=== PATIENT | female | born 1950 | race Caucasian/White ===

== ENCOUNTER 2017-10-13 09:48 | Inpatient (IN) | payer OTHER, BC, MEDICARE ==
[~2017-10-13] VITALS: Ht 152.4 cm; Wt 68.0 kg
[~2017-10-13 09:48] MED LIST: CIPRO500 M1 PO; FLAGYL500 MG PO; NOVOLIN 70100 UNIT/1 SQ
--- NOTE | 2017-10-13 10:16 | ED GI/GU/ABDOMINAL COMPLAINT ---
History of Present Illness General Chief Complaint: Abdominal Pain/Flank Pain Stated Complaint: R SIDE FLANK PAIN Source: patient, family, old records Exam Limitations: no limitations Vital Signs & Intake/Output Vital Signs & Intake/Output Vital Signs Date Time Temp Pulse Resp B/P B/P Pulse O2 O2 Flow FiO2 Mean Ox Delivery Rate 10/13 1730 63 20 144/70 100 10/13 1528 97.2 60 18 158/75 100 Room Air Room Air 10/13 1400 96.1 59 18 149/67 10/13 1357 96.1 59 18 149/67 100 10/13 1207 97.2 69 20 176/72 100 10/13 0958 96.7 68 18 180/81 99 Room Air Allergies Coded Allergies: nitrofurantoin (From MACROBID) (FLUSHED 10/13/17) Reconcile Medications Aspirin (Ecotrin*) 81 MG TABLET.DR 1 TAB PO EOD HEART/BLOOD (Reported) Atorvastatin Calcium 10 MG TABLET 1 TAB PO EOD CHOLESTEROL (Reported) Beta-Carotene(A) W-C & E/Se (Antioxidant Softgels) 1 EACH CAPSULE 1 CAP PO DAILY SUPPLEMENT (Reported) Calcium (Elemental-Fr Calcarb) (Tums Ultra) (Unknown Strength) TAB.CHEW ( Unknown Dose) PO PRN GI (Reported) Lactobacillus Acidophilus (Probiotic) (Unknown Strength) CAPSULE (Unknown Dose ) PO DAILY PROBIOTIC (Reported) Methylcellulose (Fiber) (Unknown Strength) TABLET (Unknown Dose) PO DAILY SUPPLEMENT (Reported) [place]-3 Fatty Acids/Fish Oil (Fish Oil 1,000 MG Softgel) (Unknown Strength) CAPSULE (Unknown Dose) PO DAILY SUPPLEMENT (Reported) Ubidecarenone (Co Q-10) (Unknown Strength) CAPSULE (Unknown Dose) PO DAILY SUPPLEMENT (Reported) Triage Note: 67 YO FEMALE TO TRIAGE C/O R SIDED FLANK PAIN SINCE YESTERDAY. STATES PAIN WENT AWAY OVER NIGHT BUT CAME BACK TODAY. STATES HX OF KIDNEY STONES AND THIS FEELS THE SAME. DENIES NVD. PT ARRIVES WITH URINE CUP, URINE NOTED TO BE DARK IN COLOR. Triage Nurses Notes Reviewed? yes ? n Is pt currently ? No Onset: Abrupt Duration: day(s):, constant, waxing and waning Timing: recent history Quality/Severity: aching, moderate, sharpness Severity Numbers: 10 Location: left flank, left lower quadrant Radiation: LLQ Activities at Onset: none No Modifying Factors: none Associated Symptoms: denies HPI: 67-year-old female history of diverticulitis, uterine cancer status post total hysterectomy, kidney stones presents complaining of right lower quadrant abdominal pain rated to the right flank since yesterday. She states the pain has been constantly there however waxing waning in intensity. She is not taken anything for her symptoms. She states she believes she may past day and the stone because her urine has appeared bloody to her. No fever no chills no constipation diarrhea (Dread Davis) Past History Travel History Traveled to [place] past 21 day No Medical History Any Pertinent Medical History? see below for history Neurological: NONE EENT: VERTIGO Cardiovascular: HIGH CHOLESTEROL Respiratory: NONE Gastrointestinal: diverticulitis Hepatic: NONE Renal: KIDNEY STONES Musculoskeletal: NONE Psychiatric: NONE Endocrine: NONE Blood Disorders: NONE Cancer(s): uterine cancer Surgical History Surgical History: hysterectomy Psychosocial History What is your primary language Romanian Tobacco Use: Never used Family History Family History, If Any: Relation not specified for: Cholelithiasis Nephrolithiasis Hx Contributory? No (Dread Davis) Review of Systems Review of Systems Constitutional: Reports: see HPI. Comments Review of systems: See HPI, All other systems negative. Constitutional, no chills no fever, HEENT: no sore throat no congestion, Cardiovascular: No chest pain , no palpitation Skin: no rashes, no change in skin Respiratory: No dyspnea no cough no sputum GI: No nausea no vomiting, no diarrhea, no bloating/constipation : No dysuria hematuria, no frequency Muscle skeletal: No joint pain, no back pain Neurologic: , no headache Heme/endocrine: No bruising Immunology: No lymphadenopathy (Dread Davis) Physical Exam Physical Exam General Appearance: well developed/nourished, alert Gastrointestinal: tenderness Comments: Well-developed well-nourished person in no acute distress HEENT: Normal EENT exam; PERRL, EOMI, HEAD is atraumatic. moist mucous membranes. Neck: Supple, normal range of motion Back: Nontender, no CVA tenderness. Full range of motion Cardiovascular: Regular rate and rhythms no murmur Respiratory: No respiratory distress. Patient speaking in full complete sentences. Breath sounds clear to auscultation bilaterally: NO W/R/R Abdomen: Soft, tender to palpation of the right lower quadrant, no appreciable organomegaly. Normal bowel sounds. No rebound/guarding, Extremity: No edema, full range of motion of extremities Neuro: Alert oriented x3, motor sensory normal, There were no obvious focal neurologic abnormalities. Skin: No appreciable rash on exposed skin, skin is warm and dry. Psych: Mood and affect is normal, memory and judgment is normal. Core Measures ACS in differential dx? No Sepsis Present: No Sepsis Focused Exam Completed? No (Jeffrey MOORE,Dread) Progress Differential Diagnosis: appendicitis, bowel obstruction, diverticulitis, gastritis, hepatitis, inflamm bowel dis, PUD/GERD, perforated viscous, SBO, UTI/ pyelo Plan of Care: Orders Procedure Date/time Status Nothing by Mouth 10/14 B Active BASIC ELECTROLYTES PLUS BUN&CR 10/14 0600 Active Regular Diet 10/13 D Complete Vital Signs 10/13 1710 Active Teach/Educate 10/13 1710 Active Pain Treatment and Response 10/13 1710 Active Nutritional Intake, Monitor 10/13 1710 Active Isolation 10/13 1710 Active Intake & Output 10/13 1710 Active Patient Care Conference 10/13 1710 Active Activity/Ambulation 10/13 1710 Active BLOOD CULTURE 10/13 1504 Active Pathway - chart 10/13 1418 Active House Staff 10/13 1418 Active Patient Data 10/13 1418 Active Code Status 10/13 1418 Active Patient Data 10/13 1416 Active OXYGEN SETUP (GEN) 10/13 1345 Active Saline Lock 10/[address] in observation 10/13 1345 Active Vital Signs 10/13 1345 Active Activity/Ambulation 10/13 1345 Active Code Status 10/13 1345 Complete Intake & Output 10/13 1027 Active CULTURE,URINE 10/13 1014 Active C-REACTIVE PROTEIN 10/13 1014 Complete COMPREHENSIVE METABOLIC PANEL 10/13 1014 Complete CBC WITHOUT DIFFERENTIAL 10/13 1014 Complete URINALYSIS 10/13 0949 Complete VTE Mechanical Prophylaxis 10/13 UNK Active Current Medications Sig/Zina Start time Last Medication Dose Stop Time Status Admin Tamsulosin HCl 0.4 MG DAILY 10/14 1000 AC (Flomax) Sodium Chloride 1,000 ML Q6H 10/13 1545 AC 10/13 (Normal Saline 0.9%) 1707 Morphine Sulfate 4 MG Q6-PRN PRN 10/13 1515 AC (MORPHINE SULFATE) Sodium Chloride 1,000 ML BOLUS ONE 10/13 1515 AC 10/13 (Normal Saline 0.9%) 10/13 1914 1601 Aspirin Buffered 81 MG Q48 10/13 1430 AC (Ecotrin) Atorvastatin Calcium 10 MG Q48 10/13 1430 AC (Lipitor) Ketorolac 15 MG Q6P PRN 10/13 1430 AC Tromethamine (Toradol) Enoxaparin Sodium 40 MG DAILY 10/13 1417 AC 10/13 (Lovenox) 1449 Laboratory Tests 10/13/17 1125: Urinalysis MOD H, Urine Color PINK H, Urine Clarity CLDY H, Urine pH 7.0, Ur Specific [place] 1.015, Urine Protein TRACE H, Urine Ketones NEG, Urine Nitrite NEG, Urine Bilirubin NEG, Urine Urobilinogen 0.2, Ur Leukocyte Esterase SMALL H , Ur Microscopic SEDIMENT EXAMINED, Urine RBC >75 H, Urine WBC 1-3 H, Ur Epithelial Cells FEW, Urine Bacteria RARE H, Urine Hemoglobin LARGE H, Urine Glucose NEG 10/13/17 1020: Anion Gap 17 H, Estimated GFR > 60, BUN/Creatinine Ratio 25.0, Glucose 146 H, Calcium 10.2, Total Bilirubin 0.8, AST 18, ALT 25, Alkaline Phosphatase 72, C- Reactive Prot, Quant < 0.5, Total Protein 7.3, Albumin 4.3, Globulin 3.0, Albumin/Globulin Ratio 1.4, CBC w Diff NO MAN DIFF REQ, RBC 4.72, MCV 90.9, MCH 30.3, MCHC 33.3, RDW 13.6, MPV 9.0, Gran % 61.8, Lymphocytes % 28.0, Monocytes % 7.4, Eosinophils % 2.2, Basophils % 0.6, Absolute Granulocytes 5.1, Absolute Lymphocytes 2.3, Absolute Monocytes 0.6, Absolute Eosinophils 0.2, Absolute Basophils 0.1 Microbiology 10/13 1632 BLOOD: Blood Culture - RECD 10/13 1620 BLOOD: Blood Culture - RECD 10/13 1504 URINE ROUT: Urine Culture - CAN Cancelled: DUPLICATE 10/13 1125 URINE ROUT: Urine Culture - RECD Labs ordered old records reviewed CAT scan ordered patient medicated with Toradol morphine IV pain is coming in waves discussed with her plan of care she is declining anything else for pain at this time pending CAT scan IV Tylenol ordered pain is not controlled at this time I discussed with her her CAT scan results I spoke with Dr. Edwards covering for Dr. Riley, case discussed with Dr. carlo pinedo in obs Discussed with patient and her plan of care they feel comfortable with plan IV Tylenol as running no Place her in observation for intractable pain Diagnostic Imaging: Viewed by Me: CT Scan. Discussed w/RAD: CT Scan. Radiology Impression: PATIENT: LUKE ESPINOZA PRESENT AGE: 67 PATIENT ACCOUNT NO: [id number] : 49 LOCATION: [facility] ORDERING PHYSICIAN: Dread MOORE SERVICE DATE: 10/13/17 EXAM TYPE: CAT - CT ABD & PELVIS W IV CONTRAST EXAMINATION: CT ABDOMEN AND PELVIS WITH CONTRAST CLINICAL INFORMATION: Right lower quadrant pain. Evaluate for kidney stone versus appendicitis. COMPARISON: Previous x-rays most recent May [address] October 2015. TECHNIQUE: Multidetector volumetric imaging was performed of the abdomen and pelvis following IV administration of 95 mL of Optiray 320 intravenous contrast. Sagittal and coronal reformatted images were obtained on the technologist's workstation. DLP: 289 mGy-cm FINDINGS: LUNG BASES: The visualized lung bases are unremarkable. LIVER, GALLBLADDER, AND BILIARY TREE: There is a small 3 mm low-attenuation lesion in the posterior segment of the right lobe of the liver axial image 28 series 2. This is too small to definitively characterize but may represent a small cyst. The gallbladder is unremarkable with no evidence of radiopaque gallstones, gallbladder wall thickening, or obvious pericholecystic inflammatory changes. PANCREAS: Unremarkable. SPLEEN: Unremarkable. ADRENAL GLANDS: Unremarkable. KIDNEYS AND URETERS: There is moderate right hydronephrosis from a 3 mm right proximal ureteral stone. There is fat stranding seen surrounding the right kidney and right proximal ureter questionable for urine extravasation. Differential would include infection. No other stone is seen. The left kidney and ureter are unremarkable. BLADDER: Unremarkable. GASTROINTESTINAL TRACT: There is evidence of diverticulosis. Small and large bowel is otherwise unremarkable. The appendix is unremarkable. There is a small gastric diverticulum arising from the posterior fundus of the stomach. ABDOMINAL WALL: No significant hernia is appreciated. LYMPH NODES: There are no enlarged lymph nodes. There are surgical clips in the bilateral pelvis suggestive of previous lymph node dissection. There is no ascites. VASCULAR: There is evidence of atherosclerotic disease. No aneurysm is seen. PELVIC VISCERA: The uterus appears to have been removed. No pelvic mass is seen. OSSEOUS STRUCTURES: There are degenerative changes of the spine and mild scoliosis of the lower lumbar spine to the right. IMPRESSION: Moderate right hydronephrosis from a 3 mm right proximal ureteral stone. There is a small amount of fluid and fat stranding seen surrounding the right kidney and right proximal ureter questionable for possible urinary extravasation or infection. No other stone seen. Diverticulosis. DICTATED BY: Maranda Apple MD DATE/TIME DICTATED:10/13/171210 [employer] ASSOCIATE:LUIS ALFREDO DATE/TIME TRANSCRIBED:10/13/171210 CONFIDENTIAL, DO NOT COPY WITHOUT APPROPRIATE AUTHORIZATION. <Electronically signed in Other Vendor System> SIGNED BY: Maranda Apple MD 10/13/17 1245 Initial ED EKG: none (Dread Davis) Departure Departure Time of Disposition: 1341 Disposition: STILL A PATIENT Condition: Stable Clinical Impression Primary Impression: Intractable pain Secondary Impressions: Hydronephrosis, Kidney stone Referrals: Conrado SPARROW,Christina Lacey APRN (PCP/Family) Departure Forms: Customer Survey General Discharge Information Observation Note Spoke With: Carlo SPARROW,[facility] Patient In: Non-ED OBS Care Area Rationale for Observation: My rational for observation is as follows urology consult, IV pain medication premature discharge to be medically harmful as she has required multiple doses of medication without improvement in her symptoms she would fail outpatient therapy (Dread Davis) PA/DEPARTMENT MGR Co-Sign Statement Statement: ED Attending supervision documentation- x I saw and evaluated the patient. I have also reviewed all the pertinent lab results and diagnostic results. I agree with the findings and the plan of care as documented in the PA's/DEPARTMENT MGR's documentation. Intractable pain secondary to renal colic. [] I have reviewed the ED Record and agree with the PA's/DEPARTMENT MGR's documentation. [] Additions or exceptions (if any) to the PAs/DEPARTMENT MGR's note and plan are summarized below: [] (Ariela SPARROW,Bertram)
[2017-10-13 10:42] LABS: ABSOLUTE BASOPHIL COUNT 0.1 /CUMM (0.0-0.2); ABSOLUTE EOSINOPHIL COUNT 0.2 /CUMM (0.0-0.7); ABSOLUTE GRANULOCYTE CT 5.1 /CUMM (1.4-6.5); ABSOLUTE LYMPH COUNT 2.3 /CUMM (1.2-3.4); ABSOLUTE MONOCYTE COUNT 0.6 /CUMM (0.10-0.60); BASOPHIL % 0.6 % (0.0-2.0); EOSINOPHIL % 2.2 % (0-5); GRANULOCYTE % 61.8 % (42.2-75.2); HEMATOCRIT 42.9 % (37-47); MEAN CORPUSCULAR HGB 30.3 PG (27.0-31.0); MEAN CORPUSCULAR HGB CONC 33.3 G/DL (33.0-37.0); MEAN CORPUSCULAR VOLUME 90.9 FL (81.0-99.0); PLATELET COUNT 296 /CUMM (130-400); RBC DISTRIBUTION WIDTH 13.6 % (11.5-14.5); RED BLOOD CELL CT 4.72 /CUMM (4.20-5.40); WHITE BLOOD CELL COUNT 8.3 /CUMM (4.8-10.8)
--- NOTE | 2017-10-13 12:45 | CT SCAN REPORT ---
EXAMINATION: CT ABDOMEN AND PELVIS WITH CONTRAST CLINICAL INFORMATION: Right lower quadrant pain. Evaluate for kidney stone versus appendicitis. COMPARISON: Previous x-rays most recent May [address] October 2015. TECHNIQUE: Multidetector volumetric imaging was performed of the abdomen and pelvis following IV administration of 95 mL of Optiray 320 intravenous contrast. Sagittal and coronal reformatted images were obtained on the technologist's workstation. DLP: 289 mGy-cm FINDINGS: LUNG BASES: The visualized lung bases are unremarkable. LIVER, GALLBLADDER, AND BILIARY TREE: There is a small 3 mm low-attenuation lesion in the posterior segment of the right lobe of the liver axial image 28 series 2. This is too small to definitively characterize but may represent a small cyst. The gallbladder is unremarkable with no evidence of radiopaque gallstones, gallbladder wall thickening, or obvious pericholecystic inflammatory changes. PANCREAS: Unremarkable. SPLEEN: Unremarkable. ADRENAL GLANDS: Unremarkable. KIDNEYS AND URETERS: There is moderate right hydronephrosis from a 3 mm right proximal ureteral stone. There is fat stranding seen surrounding the right kidney and right proximal ureter questionable for urine extravasation. Differential would include infection. No other stone is seen. The left kidney and ureter are unremarkable. BLADDER: Unremarkable. GASTROINTESTINAL TRACT: There is evidence of diverticulosis. Small and large bowel is otherwise unremarkable. The appendix is unremarkable. There is a small gastric diverticulum arising from the posterior fundus of the stomach. ABDOMINAL WALL: No significant hernia is appreciated. LYMPH NODES: There are no enlarged lymph nodes. There are surgical clips in the bilateral pelvis suggestive of previous lymph node dissection. There is no ascites. VASCULAR: There is evidence of atherosclerotic disease. No aneurysm is seen. PELVIC VISCERA: The uterus appears to have been removed. No pelvic mass is seen. OSSEOUS STRUCTURES: There are degenerative changes of the spine and mild scoliosis of the lower lumbar spine to the right. IMPRESSION: Moderate right hydronephrosis from a 3 mm right proximal ureteral stone. There is a small amount of fluid and fat stranding seen surrounding the right kidney and right proximal ureter questionable for possible urinary extravasation or infection. No other stone seen. Diverticulosis.
[2017-10-13] MEDS ORDERED: ATORVASTATIN CA10 M1 PO (12:53)
[2017-10-13] MEDS ORDERED: ASPIRIN EC81 M1 PO (12:53)
[2017-10-13] MEDS ORDERED: CO Q-10150 MG PO (12:53)
[2017-10-13] MEDS ORDERED: ANTIOXIDANT SO1 EACH PO (12:54)
[2017-10-13] MEDS ORDERED: PROBIOTIC1 EACH PO (12:54)
[2017-10-13] MEDS ORDERED: FISH OIL 1,0001 EAC1 PO (12:54)
[2017-10-13] MEDS ORDERED: TUMS ULTRA400 M1 PO (12:55)
[2017-10-13] MEDS ORDERED: FIBER500 MG PO (12:55)
--- NOTE | 2017-10-13 14:50 | History & Physical ---
Maria Fernanda Heller 10/13/17 1436: General Information and HPI MD Statement: I have seen and personally examined LUKE ESPINOZA and documented this H&P. The patient is a 67 year old F who presented with a patient stated chief complaint of abdominal pain]. Source of Information: patient Exam Limitations: no limitations History of Present Illness: She is a 67-year-old female with past medical history of diverticulitis, uterine cancer status post hysterectomy, kidney stones presented to the ER with a chief complaint of abdominal pain and hematuria that started yesterday. Patient reports that around yesterday afternoon she started having right-sided coliky abdominal pain radiating to her groin. She continued to have intermittent pain and 1 episode of hematuria. Denies any fever but admits to having chills. Denies any chest pain, palpitations, nausea, vomiting, bowel symptoms. The pain subsided by itself and patient decided not to come to the hospital. But today again she started having similar pain and therefore decided to come to the hospital. Dr. Camp is her urologist. In the ED vitals temperature 96.7, pulse 68, respiration 18, blood pressure 180 /71, saturating 99% on room air. With small leukocyte esterase, large hemoglobin. Labs were all within normal limits Urine was cloudy, pink Abdominal/pelvis CT :Moderate right hydronephrosis from a 3 mm right proximal ureteral stone. There is a small amount of fluid and fat stranding seen surrounding the right kidney and right proximal ureter questionable for possible urinary extravasation or infection. No other stone seen. Diverticulosis. She received IV Toradol, IV morphine, and IV Tylenol in the ED Allergies/Medications Allergies: Coded Allergies: nitrofurantoin (From MACROBID) (FLUSHED 10/13/17) Home Med list Aspirin (Ecotrin*) 81 MG TABLET.DR 1 TAB PO EOD HEART/BLOOD (Reported) Atorvastatin Calcium 10 MG TABLET 1 TAB PO EOD CHOLESTEROL (Reported) Beta-Carotene(A) W-C & E/Se (Antioxidant Softgels) 1 EACH CAPSULE 1 CAP PO DAILY SUPPLEMENT (Reported) Calcium (Elemental-Fr Calcarb) (Tums Ultra) (Unknown Strength) TAB.CHEW ( Unknown Dose) PO PRN GI (Reported) Lactobacillus Acidophilus (Probiotic) (Unknown Strength) CAPSULE (Unknown Dose ) PO DAILY PROBIOTIC (Reported) Methylcellulose (Fiber) (Unknown Strength) TABLET (Unknown Dose) PO DAILY SUPPLEMENT (Reported) [place]-3 Fatty Acids/Fish Oil (Fish Oil 1,000 MG Softgel) (Unknown Strength) CAPSULE (Unknown Dose) PO DAILY SUPPLEMENT (Reported) Ubidecarenone (Co Q-10) (Unknown Strength) CAPSULE (Unknown Dose) PO DAILY SUPPLEMENT (Reported) Past History Travel History Traveled to [place] past 21 day No Medical History Neurological: NONE EENT: VERTIGO Cardiovascular: HIGH CHOLESTEROL Respiratory: NONE Gastrointestinal: diverticulitis Hepatic: NONE Renal: KIDNEY STONES Musculoskeletal: NONE Psychiatric: NONE Endocrine: NONE Blood Disorders: NONE Cancer(s): uterine cancer Surgical History Surgical History: hysterectomy Past Family/Social History Family History Relations & Conditions if any Relation not specified for: Cholelithiasis Nephrolithiasis Review of Systems Review of Systems Constitutional: Reports: chills. EENTM: Reports: no symptoms. Cardiovascular: Reports: no symptoms. Respiratory: Reports: no symptoms. GI: Reports: abdominal pain. Genitourinary: Reports: hematuria. Musculoskeletal: Reports: no symptoms. Skin: Reports: no symptoms. Exam & Diagnostic Data Last 24 Hrs of Vital Signs/I&O Vital Signs Date Time Temp Pulse Resp B/P B/P Pulse O2 O2 Flow FiO2 Mean Ox Delivery Rate 10/13 1400 96.1 59 18 149/67 10/13 1357 96.1 59 18 149/67 100 10/13 1207 97.2 69 20 176/72 100 10/13 0958 96.7 68 18 180/81 99 Room Air Intake & Output 10/13 1600 10/13 0800 10/13 0000 Intake Total 1000 Output Total Balance 1000 Intake, IV 1000 Patient 67.132 kg Weight Weight Reported by Patient Measurement Method Physical Exam General Appearance Alert, Oriented X3, Cooperative, No Acute Distress Skin No Rashes, No Breakdown, No Significant Lesion Skin Temp/Moisture Exam: Warm/Dry Sepsis Skin Exam (color): Normal for Ethnicity HEENT Atraumatic, PERRLA, EOMI Neck Supple Lymphatic Cervical nl Cardiovascular Regular Rate, Normal S1, Normal S2 Lungs Clear to Auscultation, Normal Air Movement Abdomen right lumbar tenderness with rebound tenderness. No CVA tenderness Neurological Normal Speech, Sensation Intact Extremities No Clubbing, No Cyanosis, No Edema Last 24 Hrs of Labs/Toño: Laboratory Tests 10/13/17 1125: Urinalysis MOD H, Urine Color PINK H, Urine Clarity CLDY H, Urine pH 7.0, Ur Specific [place] 1.015, Urine Protein TRACE H, Urine Ketones NEG, Urine Nitrite NEG, Urine Bilirubin NEG, Urine Urobilinogen 0.2, Ur Leukocyte Esterase SMALL H , Ur Microscopic SEDIMENT EXAMINED, Urine RBC >75 H, Urine WBC 1-3 H, Ur Epithelial Cells FEW, Urine Bacteria RARE H, Urine Hemoglobin LARGE H, Urine Glucose NEG 10/13/ 1020: Anion Gap 17 H, Estimated GFR > 60, BUN/Creatinine Ratio 25.0, Glucose 146 H, Calcium 10.2, Total Bilirubin 0.8, AST 18, ALT 25, Alkaline Phosphatase 72, C- Reactive Prot, Quant < 0.5, Total Protein 7.3, Albumin 4.3, Globulin 3.0, Albumin/Globulin Ratio 1.4, CBC w Diff NO MAN DIFF REQ, RBC 4.72, MCV 90.9, MCH 30.3, MCHC 33.3, RDW 13.6, MPV 9.0, Gran % 61.8, Lymphocytes % 28.0, Monocytes % 7.4, Eosinophils % 2.2, Basophils % 0.6, Absolute Granulocytes 5.1, Absolute Lymphocytes 2.3, Absolute Monocytes 0.6, Absolute Eosinophils 0.2, Absolute Basophils 0.1 Microbiology 10/13 1124 URINE ROUT: Urine Culture - RECD Assessment/Plan Assessment: She is a 67-year-old female with past medical history of diverticulitis, uterine cancer status post hysterectomy, kidney stones presented to the ER with a chief complaint of abdominal pain and hematuria that started yesterday. In the ED vitals temperature 96.7, pulse 68, respiration 18, blood pressure 180/ 71, saturating 99% on room air. With small leukocyte esterase, large hemoglobin. Labs were all within normal limits Urine was cloudy, pink Abdominal/pelvis CT :Moderate right hydronephrosis from a 3 mm right proximal ureteral stone. There is a small amount of fluid and fat stranding seen surrounding the right kidney and right proximal ureter questionable for possible urinary extravasation or infection. No other stone seen. Diverticulosis. She received IV Toradol, IV morphine, and IV Tylenol in the ED Assessment * Renal colic secondary to proximal ureteral stone * Mild right hydronephrosis * Uterine cancer status post hysterectomy Plan * Admit to [facility] * Vitals per protocol * IV hydration with normal saline at 150 cc an hour * Continue flomax daily * urine and blood cultures * Continue IV morphine and Toradol for pain control * We will watch off antibiotics since no signs of infection. Culture negative in the past * Urology consult with Dr. Camp tomorrow * We will keep patient nothing by mouth if plan to do ESWL tomorrow * DVT prophylaxis subcutaneous heparin * Full code * Severe pain pathway As Ranked By This Provider Problem List: 1. Hydronephrosis 2. Kidney stone Core Measures/Misc (04/07) Acute Coronary Syndrome ACS Diagnosis: No Congestive Heart Failure Congestive Heart Failure Diagnosis No Cerebrovascular Accident CVA/TIA Diagnosis: No VTE (View Protocol) VTE Risk Factors Age>40 No Mechanical VTE Prophylaxis d/t N/A MechProphylax Ordered No VTE Pharm Prophylaxis d/t NA PharmProphylax ordered Sepsis (View protocol) Sepsis Present: No Carlo SPARROW,[facility] 10/13/17 1649: Attending MD Review Statement Attending Statement Attending MD Statement: examined this patient, discuss w/resident/PA/PIPE FITTER WELDING, agreed w/resident/PA/PIPE FITTER WELDING, discussed with family, reviewed EMR data (avail), reviewed images Attending Assessment/Plan: 67-year-old female with past medical history of diverticulitis, uterine cancer status post hysterectomy, kidney stones presented to the ER with a chief complaint of abdominal pain and hematuria that started yesterday without any fever chills or nausea or vomiting. Patient follows up with Dr. Camp. Last episode of renal colic was about 3 years ago. Her sister also suffers from renal stones. At the time of admission she is afebrile. Her initial blood pressure was 180/81 however later blood pressure was 158/75. Urine shows hematuria and WBC count is normal. Chemistry labs show mild gap acidosis and elevated BUN of 20. CT of the abdomen shows 3 mm right proximal ureteric stone with hydronephrosis. Plan is to place in observation medical floor for pain control and IV hydration. Will begin IV fluids. Patient was given IV Toradol. Consultation Dr. Camp will be done in the morning. Given the size of stone, she will be managed medically.
--- NOTE | 2017-10-13 16:57 | Cons- Urology ---
General Information and HPI Consulting Request Date of Consult: 10/13/17 Requested By: Carlo SPARROW,[place] Reason for Consult: SEVERE RIGHT RENAL COLIC WITH 3MM STONE: HYRO Source of Information: patient, family, old records Exam Limitations: no limitations History of Present Illness: 67 YR OLD WITH SUDDEN ONSET SEVERE RIGHT COLIC: REQUIRED IV NARCS FOR PAIN CONTROL. CT REVEALS 3MM RIGHT MID-URETER STONE WITH HYDRO. PLAN IS ADMIT FOR PAIN MANAGEMENT AND NPO POST-MIDNIGHT FOR POSSIBLE STENT/URETEROSCOPY/ESWL IN AM Allergies/Medications Allergies: Coded Allergies: nitrofurantoin (From MACROBID) (FLUSHED 10/13/17) Home Med List: Aspirin (Ecotrin*) 81 MG TABLET.DR 1 TAB PO EOD HEART/BLOOD (Reported) Atorvastatin Calcium 10 MG TABLET 1 TAB PO EOD CHOLESTEROL (Reported) Beta-Carotene(A) W-C & E/Se (Antioxidant Softgels) 1 EACH CAPSULE 1 CAP PO DAILY SUPPLEMENT (Reported) Calcium (Elemental-Fr Calcarb) (Tums Ultra) (Unknown Strength) TAB.CHEW ( Unknown Dose) PO PRN GI (Reported) Lactobacillus Acidophilus (Probiotic) (Unknown Strength) CAPSULE (Unknown Dose ) PO DAILY PROBIOTIC (Reported) Methylcellulose (Fiber) (Unknown Strength) TABLET (Unknown Dose) PO DAILY SUPPLEMENT (Reported) [place]-3 Fatty Acids/Fish Oil (Fish Oil 1,000 MG Softgel) (Unknown Strength) CAPSULE (Unknown Dose) PO DAILY SUPPLEMENT (Reported) Ubidecarenone (Co Q-10) (Unknown Strength) CAPSULE (Unknown Dose) PO DAILY SUPPLEMENT (Reported) Current Medications: Current Medications Sig/Zina Start time Last Medication Dose Route Stop Time Status Admin Acetaminophen 0 .STK-MED ONE 10/13 1220 DC IV Acetaminophen 1,000 MG ONCE ONE 10/13 1215 DC 10/13 N/A 1 UNIT IV 10/13 1229 1224 Aspirin Buffered 81 MG Q48 10/13 1430 AC PO Atorvastatin Calcium 10 MG Q48 10/13 1430 AC PO Enoxaparin Sodium 0 .STK-MED ONE 10/13 1451 DC SC Enoxaparin Sodium 40 MG DAILY 10/13 1417 AC 10/13 SC 1449 Ketorolac 15 MG Q6P PRN 10/13 1430 AC Tromethamine IV Ketorolac 0 .STK-MED ONE 10/13 1022 DC Tromethamine .ROUTE Ketorolac 30 MG ONCE ONE 10/13 1015 DC 10/13 Tromethamine IV 10/13 1016 1020 Morphine Sulfate 4 MG Q6-PRN PRN 10/13 1515 AC IV Morphine Sulfate 0 .STK-MED ONE 10/13 1035 DC .ROUTE Morphine Sulfate 6 MG ONCE ONE 10/13 1030 DC 10/13 IV 10/13 1031 1035 Sodium Chloride 1,000 ML Q6H 10/13 1545 AC IV Sodium Chloride 1,000 ML BOLUS ONE 10/13 1515 AC 10/13 IV 10/13 1914 1601 Sodium Chloride 1,000 ML BOLUS ONE 10/13 1015 DC 10/13 IV 10/13 1114 1020 Tamsulosin HCl 0.4 MG DAILY 10/14 1000 AC PO Tamsulosin HCl 0.4 MG DAILY 10/13 1533 DC PO Tamsulosin HCl 0.4 MG ONCE ONE 10/13 1345 DC 10/13 PO 10/13 1346 1400 Past History Medical History Neurological: NONE EENT: VERTIGO Cardiovascular: HIGH CHOLESTEROL Respiratory: NONE Gastrointestinal: diverticulitis Hepatic: NONE Renal: KIDNEY STONES Musculoskeletal: NONE Psychiatric: NONE Endocrine: NONE Blood Disorders: NONE Cancer(s): uterine cancer Surgical History Pertinent Surgical History: hysterectomy Family History Relations & Conditions If Any: Relation not specified for: Cholelithiasis Nephrolithiasis Psychosocial History Where Do You Live? Home Who Do You Live With? spouse Services at Home: None ETOH Use: denies use Illicit Drug Use: denies illicit drug use Functional Ability ADLs Independent: dressing, eating, toileting, bathing. Ambulation: independent IADLs Independent: shopping, housework, finances, food prep, telephone, transportation , medication admin. Employment History Retired? unknown Review of Systems Review of Systems Constitutional: Reports: see HPI, chills. EENTM: Denies: no symptoms. Cardiovascular: Denies: no symptoms. Respiratory: Denies: no symptoms. GI: Reports: abdominal pain, bloating. Genitourinary: Denies: no symptoms. Musculoskeletal: Denies: no symptoms. Skin: Denies: no symptoms. Neurological/Psychological: Denies: no symptoms. Exam & Diagnostic Data Vital Signs and I&O Vital Signs Date Time Temp Pulse Resp B/P B/P Pulse O2 O2 Flow FiO2 Mean Ox Delivery Rate 03/25 1528 97.2 60 18 158/75 100 Room Air Room Air 10/13 1400 96.1 59 18 149/67 10/13 1357 96.1 59 18 149/67 100 10/13 1207 97.2 69 20 176/72 100 10/13 0958 96.7 68 18 180/81 99 Room Air Intake & Output 10/13 1600 10/13 0800 10/13 0000 10/12 1600 10/12 0800 10/12 0000 Intake Total 1000 Output Total Balance 1000 Intake, IV 1000 Patient 148 lb Weight Weight Reported by Patient Measurement Method Physical Exam General Appearance: well developed/nourished, mild distress Head: atraumatic Eyes: Bilateral: normal appearance. Ears, Nose, Throat: normal pharynx Respiratory: normal breath sounds Cardiovascular: regular rate/rhythm Gastrointestinal: normal bowel sounds, soft, non-tender Back: CVA tenderness (R) Extremities: normal inspection Neurologic/Psych: no motor/sensory deficits, awake, alert, oriented x 3 Skin: intact Last 24 Hours of Labs: Laboratory Tests 10/13 10/13 1125 1020 Chemistry Sodium (137 - 145 mmol/L) 139 Potassium (3.5 - 5.1 mmol/L) 4.0 Chloride (98 - 107 mmol/L) 101 Carbon Dioxide (22 - 30 mmol/L) 21 L Anion Gap (5 - 16) 17 H BUN (7 - 17 mg/dL) 20 H Creatinine (0.5 - 1.0 mg/dL) 0.8 Estimated GFR (>60 ml/min) > 60 BUN/Creatinine Ratio (7 - 25 %) 25.0 Glucose (65 - 99 mg/dL) 146 H Calcium (8.4 - 10.2 mg/dL) 10.2 Total Bilirubin (0.2 - 1.3 mg/dL) 0.8 AST (14 - 36 U/L) 18 ALT (9 - 52 U/L) 25 Alkaline Phosphatase (<127 U/L) 72 C-Reactive Prot, Quant (<1.0 mg/dL) < 0.5 Total Protein (6.3 - 8.2 g/dL) 7.3 Albumin (3.5 - 5.0 g/dL) 4.3 Globulin (1.9 - 4.2 gm/dL) 3.0 Albumin/Globulin Ratio (1.1 - 2.2 %) 1.4 Hematology CBC w Diff NO MAN DIFF REQ WBC (4.8 - 10.8 /CUMM) 8.3 RBC (4.20 - 5.40 /CUMM) 4.72 Hgb (12.0 - 16.0 G/DL) 14.3 Hct (37 - 47 %) 42.9 MCV (81.0 - 99.0 FL) 90.9 MCH (27.0 - 31.0 PG) 30.3 MCHC (33.0 - 37.0 G/DL) 33.3 RDW (11.5 - 14.5 %) 13.6 Plt Count (130 - 400 /CUMM) 296 MPV (7.4 - 10.4 FL) 9.0 Gran % (42.2 - 75.2 %) 61.8 Lymphocytes % (20.5 - 51.1 %) 28.0 Monocytes % (1.7 - 9.3 %) 7.4 Eosinophils % (0 - 5 %) 2.2 Basophils % (0.0 - 2.0 %) 0.6 Absolute Granulocytes (1.4 - 6.5 /CUMM) 5.1 Absolute Lymphocytes (1.2 - 3.4 /CUMM) 2.3 Absolute Monocytes (0.10 - 0.60 /CUMM) 0.6 Absolute Eosinophils (0.0 - 0.7 /CUMM) 0.2 Absolute Basophils (0.0 - 0.2 /CUMM) 0.1 Urines Urinalysis MOD H Urine Color (YEL,AMB,STR) PINK H Urine Clarity (CLEAR) CLDY H Urine pH (5.0 - 8.0) 7.0 Ur Specific [place] (1.001 - 1.035) 1.015 Urine Protein (NEG,<30 MG/DL) TRACE H Urine Ketones (NEG) NEG Urine Nitrite (NEG) NEG Urine Bilirubin (NEG) NEG Urine Urobilinogen (0.1 - 1.0 EU/dl) 0.2 Ur Leukocyte Esterase (NEG) SMALL H Ur Microscopic SEDIMENT EXAMINED Urine RBC (0 - 5 /HPF) >75 H Urine WBC (0 - 2 /HPF) 1-3 H Ur Epithelial Cells (NONE,FEW) FEW Urine Bacteria (NEG/NONE) RARE H Urine Hemoglobin (NEG) LARGE H Urine Glucose (N MG/DL) NEG Imaging Results: PATIENT: CISTO,LUKE PRESENT AGE: 67 PATIENT ACCOUNT NO: [id number] : 49 LOCATION: [facility] ORDERING PHYSICIAN: Dread MOORE SERVICE DATE: 10/13/17 EXAM TYPE: CAT - CT ABD & PELVIS W IV CONTRAST EXAMINATION: CT ABDOMEN AND PELVIS WITH CONTRAST CLINICAL INFORMATION: Right lower quadrant pain. Evaluate for kidney stone versus appendicitis. COMPARISON: Previous x-rays most recent May [address] October 2015. TECHNIQUE: Multidetector volumetric imaging was performed of the abdomen and pelvis following IV administration of 95 mL of Optiray 320 intravenous contrast. Sagittal and coronal reformatted images were obtained on the technologist's workstation. DLP: 289 mGy-cm FINDINGS: LUNG BASES: The visualized lung bases are unremarkable. LIVER, GALLBLADDER, AND BILIARY TREE: There is a small 3 mm low-attenuation lesion in the posterior segment of the right lobe of the liver axial image 28 series 2. This is too small to definitively characterize but may represent a small cyst. The gallbladder is unremarkable with no evidence of radiopaque gallstones, gallbladder wall thickening, or obvious pericholecystic inflammatory changes. PANCREAS: Unremarkable. SPLEEN: Unremarkable. ADRENAL GLANDS: Unremarkable. KIDNEYS AND URETERS: There is moderate right hydronephrosis from a 3 mm right proximal ureteral stone. There is fat stranding seen surrounding the right kidney and right proximal ureter questionable for urine extravasation. Differential would include infection. No other stone is seen. The left kidney and ureter are unremarkable. BLADDER: Unremarkable. GASTROINTESTINAL TRACT: There is evidence of diverticulosis. Small and large bowel is otherwise unremarkable. The appendix is unremarkable. There is a small gastric diverticulum arising from the posterior fundus of the stomach. ABDOMINAL WALL: No significant hernia is appreciated. LYMPH NODES: There are no enlarged lymph nodes. There are surgical clips in the bilateral pelvis suggestive of previous lymph node dissection. There is no ascites. VASCULAR: There is evidence of atherosclerotic disease. No aneurysm is seen. PELVIC VISCERA: The uterus appears to have been removed. No pelvic mass is seen. OSSEOUS STRUCTURES: There are degenerative changes of the spine and mild scoliosis of the lower lumbar spine to the right. IMPRESSION: Moderate right hydronephrosis from a 3 mm right proximal ureteral stone. There is a small amount of fluid and fat stranding seen surrounding the right kidney and right proximal ureter questionable for possible urinary extravasation or infection. No other stone seen. Diverticulosis. Assessment/Plan Assessment/Plan RIGTH 3MM URETER STONE WITH HYDRO/COLIC Copies To: Rony Edwards MD Consult Acknowledgment - Thank you for your consult request. Attending MD Review Statement Attending Statement Attending MD Statement: examined this patient, discuss w/resident/PA/LOADER Attending Assessment/Plan: PT ADMITTED FOR PAIN MANAGMENT AND HYDRATION: NPO POST MIDNIGHT FOR POSSIBLE STENT/URETEROSCOPY/ESWL IN AM IF NO IMPROVEMENT.
[2017-10-13 17:30] VITALS: BP 144/70
[2017-10-13 20:00] VITALS: BP 140/78
[2017-10-13 22:04] VITALS: BP 142/70
[2017-10-13 22:05] VITALS: BP 130/68
[2017-10-14 06:20] VITALS: BP 142/66
--- NOTE | 2017-10-14 08:36 | PN- Housestaff ---
See Addendum Subjective Follow-up For: Right lower quadrant abdominal and right lung pain and tenderness Subjective: Afebrile, hemodynamically stable, saturating well on room air. The patient still complaining of right lower quadrant pain and right flank pain. She is also complaining of symptoms of indigestion, acid reflux and mild epigastric. GERD is being going for few months for which she was Tums at home. Review of Systems Constitutional: Reports: see HPI. Objective Last 24 Hrs of Vital Signs/I&O Vital Signs Date Time Temp Pulse Resp B/P B/P Pulse O2 O2 Flow FiO2 Mean Ox Delivery Rate 10/14 1000 60 110/60 10/14 0620 97.7 69 20 142/66 99 Room Air 10/13 2205 97.5 63 20 130/68 99 10/13 2000 140/78 10/13 1920 97.7 10/13 1730 63 20 144/70 100 10/13 1528 97.2 60 18 158/75 100 Room Air Room Air 10/13 1400 96.1 59 18 149/67 10/13 1357 96.1 59 18 149/67 100 10/13 1207 97.2 69 20 176/72 100 Intake & Output 10/14 1600 10/14 0800 10/14 0000 Intake Total 1200 1550 Output Total 2500 850 Balance -1300 700 Intake, IV 1200 750 Intake, Oral 800 Number 0 Bowel Movements Output, Urine 2500 850 Patient 68.039 kg Weight Physical Exam General Appearance: Alert, Oriented X3, Cooperative, Mild Distress Skin: No Rashes HEENT: Atraumatic, PERRLA, EOMI, Mucous Membr. moist/pink Neck: No JVD Cardiovascular: Regular Rate, Normal S1, Normal S2, No Murmurs Lungs: Clear to Auscultation, Normal Air Movement Abdomen: Soft, RLQ tenderness Neurological: Normal Speech, Strength at 5/5 X4 Ext Extremities: No Clubbing, No Cyanosis, No Edema Other Physical Findings: Right flank tenderness even with mild pressure Assessment/Plan Assessment: This is a 67-year-old female with a past medical history of diverticulitis, uterine cancer S/P hysterectomy and kidney stone who presented complaining of right lower quadrant abdominal pain and hematuria that started 1 day prior to admission. Urine did not show sign of infection. She is afebrile, normal WBCs, and no fever. CT abdomen and pelvis showed moderate right hydronephrosis secondary to 3 mm right proximal ureteral stone with some fluid and fat stranding surrounding the right kidney. On admission she had elevated blood pressure that most likely secondary to pain, blood pressure is been controlled since then without antihypertensive medication. Assessment #Renal colic most likely caused by 3 mm proximal ureteral stone The patient has no symptom or signs suggestive of ongoing infection, however CT showed mild hydronephrosis. Urology yesterday recommended stent placement if the symptoms did not improve. She is currently nothing by mouth for stent placement. * We will continue IV hydration @75ml/h while NPO * Continue Flomax daily * Pending urine and blood culture will continue watch of antibiotic * Pain control with morphine and Toradol as needed * Going for stent placement with Dr. Camp. #GERD and indigestion Patient has been complaining of these symptoms for long time, she self manage with Tums at home. * We will start PPI * We will instruct patient to follow with primary care doctor as an outpatient -We will continue the rest of home medication includes ASA and statin -NPO for now. -DVT prophylaxis subcutaneous heparin. -Full code. Problem List: 1. Kidney stone Pain Ratin Pain Location: right LQ and right flank Pain Goal: Remain pain free Pain Plan: See A&P Tomorrow's Labs & Rationales: BEP to follow Na and Cr Pain Ratin Pain Location: right LQ and right flank Pain Goal: Remain pain free Pain Plan: See A&P Tomorrow's Labs & Rationales: BEP to follow Na and Cr
--- NOTE | 2017-10-14 13:39 | Cons- Urology ---
General Information and HPI Consulting Request Date of Consult: 10/14/17 Requested By: Sejal Bull MD Reason for Consult: 3 mm R proximal ureteral stone Source of Information: patient, old records Exam Limitations: no limitations History of Present Illness: This patient has a hx of urinary stones and has been followed in the office for an asymptomatic R caliceal renal stone. She presented to the ER with 2 day hx of R flank pain and RLQ pain and recent pink urine. She denies any fever or vomiting. CT showed a 3 mm R proximal uretera stone with mild to moderate R hydronephrosis. The CT was done with IV contrast and the nephrograms were prompt bilaterally. Since being admitted her pain has been well controlled. Her biggest complaint has been heart burn which is being managed with medication effectively. She has been afebrile since admission and has a normal WBC count and normal creatinine. Her U/A shows no sign of infection. Allergies/Medications Allergies: Coded Allergies: nitrofurantoin (From [employer]) (FLUSHED 10/13/17) Home Med List: Aspirin (Ecotrin*) 81 MG TABLET.DR 1 TAB PO EOD HEART/BLOOD (Reported) Atorvastatin Calcium 10 MG TABLET 1 TAB PO EOD CHOLESTEROL (Reported) Beta-Carotene(A) W-C & E/Se (Antioxidant Softgels) 1 EACH CAPSULE 1 CAP PO DAILY SUPPLEMENT (Reported) Calcium (Elemental-Fr Calcarb) (Tums Ultra) (Unknown Strength) TAB.CHEW ( Unknown Dose) PO PRN GI (Reported) Lactobacillus Acidophilus (Probiotic) (Unknown Strength) CAPSULE (Unknown Dose ) PO DAILY PROBIOTIC (Reported) Methylcellulose (Fiber) (Unknown Strength) TABLET (Unknown Dose) PO DAILY SUPPLEMENT (Reported) [place]-3 Fatty Acids/Fish Oil (Fish Oil 1,000 MG Softgel) (Unknown Strength) CAPSULE (Unknown Dose) PO DAILY SUPPLEMENT (Reported) Ubidecarenone (Co Q-10) (Unknown Strength) CAPSULE (Unknown Dose) PO DAILY SUPPLEMENT (Reported) Current Medications: Current Medications Sig/Zina Start time Last Medication Dose Route Stop Time Status Admin Acetaminophen 1,000 MG ONCE ONE 10/13 2200 DC 10/13 N/A 1 UNIT IV 10/13 2214 2230 Amlodipine Besylate 2.5 MG ONCE ONE 10/14 1045 CAN PO 10/14 1046 Aspirin Buffered 81 MG Q48 10/13 1430 AC PO Atorvastatin Calcium 10 MG Q48 10/13 1430 AC 10/13 PO 2023 Enoxaparin Sodium 0 .STK-MED ONE 10/13 1451 DC SC Enoxaparin Sodium 40 MG DAILY 10/13 1417 AC 10/14 SC 1012 Ketorolac 15 MG Q6P PRN 10/13 1430 AC 10/13 Tromethamine IV 202 Morphine Sulfate 4 MG Q6-PRN PRN 10/13 1515 AC IV Omeprazole 20 MG DAILY AC 10/15 0700 AC PO Omeprazole 20 MG DAILY AC 10/14 1030 DC PO Oxycodone/ 1 TAB ONCE ONE 10/14 0045 DC 10/14 Acetaminophen PO 10/14 0046 0037 Pantoprazole Sodium 40 MG ONCE ONE 10/14 1100 DC 10/14 IV 10/14 1101 1139 Sodium Chloride 1,000 ML Q6H 10/13 1545 AC 10/14 IV 0459 Sodium Chloride 1,000 ML BOLUS ONE 10/13 1515 DC 10/13 IV 10/13 1914 1601 Tamsulosin HCl 0.4 MG DAILY 10/14 1000 AC 10/14 PO 1000 Tamsulosin HCl 0.4 MG DAILY 10/13 1533 DC PO Tamsulosin HCl 0.4 MG ONCE ONE 10/13 1345 DC 10/13 PO 10/13 1346 1400 Past History Medical History Blood Transfusion Hx: No Neurological: NONE EENT: VERTIGO Cardiovascular: HIGH CHOLESTEROL Respiratory: NONE Gastrointestinal: diverticulitis Hepatic: NONE Renal: KIDNEY STONES Musculoskeletal: NONE Psychiatric: NONE Endocrine: NONE Blood Disorders: NONE Cancer(s): uterine cancer Surgical History Pertinent Surgical History: hysterectomy Family History Relations & Conditions If Any: Relation not specified for: Cholelithiasis Nephrolithiasis Psychosocial History Where Do You Live? Home Who Do You Live With? spouse Services at Home: None Smoking Status: Former Smoker ETOH Use: denies use Illicit Drug Use: denies illicit drug use Functional Ability ADLs Independent: dressing, eating, toileting, bathing. Ambulation: independent IADLs Independent: shopping, housework, finances, food prep, telephone, transportation , medication admin. Employment History Retired? unknown Exam & Diagnostic Data Vital Signs and I&O Vital Signs Date Time Temp Pulse Resp B/P B/P Pulse O2 O2 Flow FiO2 Mean Ox Delivery Rate 10/14 1000 60 110/60 03/26 0620 97.7 69 20 142/66 99 Room Air 10/13 2205 97.5 63 20 130/68 99 10/13 2000 140/78 10/13 1920 97.7 10/13 1730 63 20 144/70 100 10/13 1528 97.2 60 18 158/75 100 Room Air Room Air 10/13 1400 96.1 59 18 149/67 10/13 1357 96.1 59 18 149/67 100 Intake & Output 10/14 1600 10/14 0800 10/14 0000 10/13 1600 10/13 0800 10/13 0000 Intake Total 1200 1550 1000 Output Total 2500 850 Balance -4201 421 1243 Intake, IV 7263 303 7951 Intake, Oral 800 Number 0 Bowel Movements Output, Urine 2500 850 Patient 150 lb 148 lb Weight Weight Reported by Patient Measurement Method No acute distress Back: mild R CVA tenderness Abd: soft and non tender Laboratory Tests 10/14 0800 Chemistry Sodium (137 - 145 mmol/L) 133 L Potassium (3.5 - 5.1 mmol/L) 3.7 Chloride (98 - 107 mmol/L) 104 Carbon Dioxide (22 - 30 mmol/L) 20 L Anion Gap (5 - 16) 9 BUN (7 - 17 mg/dL) 16 Creatinine (0.5 - 1.0 mg/dL) 1.0 Estimated GFR (>60 ml/min) 55 L BUN/Creatinine Ratio (7 - 25 %) 16.0 Assessment/Plan Assessment/Plan Imp: 1. 3 mm R proximal ureteral stone Plan: 1. Discussed options with patient: conservative management in hopes of spontaneous stone passage, which is likely based on stone size, Rureteroscopy and stone removal which would require a post op stent, or just stent insertion. She prefers to try to avoid any ureteral stent insertion and will therefore manage conservatively. 2. She may be discharged with po pain meds and flomax and a strainer for her urine. I instructed her to make an office appointment for f/u this . Consult Acknowledgment - Thank you for your consult request.
[2017-10-14] MEDS ORDERED: TRAMADOL HCL50 M1 PO ×2 (14:09→14:13)
[2017-10-14] MEDS ORDERED: FLOMAX0.4 M1 PO (14:09)
[2017-10-14] MEDS ORDERED: OMEPRAZOLE20 M2 PO (14:09)
--- NOTE | 2017-10-14 14:15 | Patient Discharge Instructions ---
Discharge Instructions General Discharge Information You were seen/treated for: abdominal and back pain because of renal stone Special Instructions: please follow up with urology office on Saturday at 9:00 AM for removal of R ureteral stent Follow-up with PCP after discharge Please call us back or go to ED if fever, chills, or worsening of pain. Acute Coronary Syndrome Inclusion Criteria At DC or during hospital stay patient has or had the following: ACS DIAGNOSIS No Discharge Core Measures Meds if any: Prescribed or Continued at Discharge Meds if any: NOT Prescribed or Continued at Discharge Congestive Heart Failure Inclusion Criteria At DC or during hospital stay patient has or had the following: CHF DIAGNOSIS No Discharge Core Measures Meds if any: Prescribed or Continued at Discharge Meds if any: NOT Prescribed or Continued at Discharge Cerebrovascular accident Inclusion Criteria At DC or during hospital stay patient has or had the following: CVA/TIA Diagnosis No Discharge Core Measures Meds if any: Prescribed or Continued at Discharge Meds if any: NOT Prescribed or Continued at Discharge Venous thromboembolism Inclusion Criteria VTE Diagnosis No VTE Type NONE VTE Confirmed by (Test) NONE Discharge Core Measures - Per Current guidelines, there needs to be overlap - treatment for the first 5 days of Warfarin therapy. - If discharged on Warfarin prior to 5 days of - overlap therapy, the patient will need to be - assessed for post discharge needs including - *Post discharge parental anticoagulation - *Warfarin and/or parental anticoagulation education - *Follow up date to check INR post discharge At least 5 days overlap therapy as Inpatient No Meds if any: Prescribed or Continued at Discharge Note: Overlap Therapy is Warfarin and Anticoagulant Meds if any: NOT Prescribed or Continued at Discharge
[2017-10-14 14:48] VITALS: BP 130/82
[2017-10-14 17:45] VITALS: BP 194/60
--- NOTE | 2017-10-14 17:45 | Event Note ---
Event Note Event Note: Just before discharge the patient developed sever abdominal pain, nausea and one episode of non-bloody vomits. The patient discharge was cancelled. Pain was controlled as needed. She was given zofran one dose. Patient will be started on fluid and NPO for possible stent placement in AM. Urology service was informed for 24 consult again.
[2017-10-14 18:00] VITALS: BP 170/58
[2017-10-14 22:50] VITALS: BP 130/40
[2017-10-15 06:56] VITALS: BP 120/44
--- NOTE | 2017-10-15 08:34 | PN- Housestaff ---
See Addendum Subjective Follow-up For: Right lower quadrant abdominal and right lung pain and tenderness most likely secondary to the withhydronephrosis Subjective: Continue to be afebrile, hemodynamically stable, and saturating well on room air. Patient reported improvement of pain however still rated 3-7. The pain is fairly controlled with tramadol and Tylenol, the patient would like to avoid any stronger opioids. Her nausea and vomiting resolved with Zofran. GERD and indigestion almost completely resolved with PPI. Review of Systems Constitutional: Reports: see HPI. Objective Last 24 Hrs of Vital Signs/I&O Vital Signs Date Time Temp Pulse Resp B/P B/P Pulse O2 O2 Flow FiO2 Mean Ox Delivery Rate 10/15 0854 60 120/52 10/15 0656 98.2 77 20 120/44 97 Room Air 10/14 2250 97.6 84 20 130/40 97 Room Air 10/14 1800 72 22 170/58 10/14 1745 97.9 78 24 194/60 98 Room Air 10/14 1448 97.7 77 20 130/82 94 Intake & Output 10/15 1600 10/15 0800 10/15 0000 Intake Total 600 300 Output Total Balance 600 300 Intake, IV 600 300 Physical Exam General Appearance: Alert, Oriented X3, Cooperative, No Acute Distress Skin: No Rashes HEENT: Atraumatic, PERRLA, EOMI, Mucous Membr. moist/pink Neck: No JVD Cardiovascular: Regular Rate, Normal S1, Normal S2, No Murmurs Lungs: Clear to Auscultation, Normal Air Movement Abdomen: Soft, No Tenderness Neurological: Normal Gait, Normal Speech, Strength at 5/5 X4 Ext Extremities: No Clubbing, No Cyanosis, No Edema Current Medications: Current Medications Sig/Zina Start time Last Medication Dose Route Stop Time Status Admin Acetaminophen 650 MG Q4P PRN 10/14 1700 AC PO Amlodipine Besylate 2.5 MG ONCE ONE 10/14 1045 CAN PO 10/14 1046 Aspirin Buffered 81 MG Q48 10/13 1430 AC 10/15 PO 0843 Atorvastatin Calcium 10 MG Q48 10/13 1430 AC 10/15 PO 0842 Enoxaparin Sodium 40 MG DAILY 10/13 1417 AC 10/15 SC 0843 Ketorolac 15 MG Q6P PRN 10/13 1430 AC 03/27 Tromethamine IV 0400 Morphine Sulfate 4 MG Q6-PRN PRN 10/13 1515 AC IV Omeprazole 20 MG DAILY AC 10/15 0700 AC 10/15 PO 0524 Omeprazole 20 MG DAILY AC 10/14 1030 DC PO Ondansetron HCl 4 MG ONCE ONE 10/14 1700 DC 10/14 IV 10/14 1701 1726 Pantoprazole Sodium 40 MG ONCE ONE 10/14 1100 DC 10/14 IV 10/14 1101 1139 Sodium Chloride 1,000 ML Q13H 10/14 1700 AC 10/15 IV 0525 Sodium Chloride 1,000 ML Q6H 10/13 1545 AC 10/14 IV 0459 Tamsulosin HCl 0.4 MG DAILY 10/14 1000 AC 10/15 PO 0854 Tramadol HCl 50 MG ONCE ONE 10/14 1600 DC 10/14 PO 10/14 1601 1555 Last 24 Hrs of Lab/Toño Results Last 24 Hrs of Labs/Mics: Laboratory Tests 10/15/17 0725: Anion Gap 10, Estimated GFR 55 L, BUN/Creatinine Ratio 11.0 Assessment/Plan Assessment: 67-year-old female with history of kidney stone who presented with right lower quadrant abdominal pain and right flank pain. CT abdomen and pelvis showed moderate right hydronephrosis secondary to 3 mm right proximal ureteral stone with some fluid and fat stranding surrounding the right kidney. On admission she had elevated blood pressure that most likely secondary to pain, blood pressure is been controlled since then without antihypertensive medication. The plan was to discharge patient yesterday and give her a chance to pass the stone without stent placement, however just before she was discharged she developed severe abdominal and flank pain, nausea, and vomiting. Assessment #Renal colic most likely caused by 3 mm proximal ureteral stone The patient has no symptom or signs suggestive of ongoing infection, however CT showed mild hydronephrosis. The plan was conservative management given the small size of the stone, however she continue to complain of abdominal pain and flank pain. The patient also has nausea and had one episode of nonbloody vomiting yesterday. Currently her pain is controlled with tramadol and nausea is controlled with Zofran. * Continue nothing by mouth until discussed with urology * We will continue IV hydration @75ml/h while NPO * Continue Flomax daily * Pending urine and blood culture will continue watch of antibiotic * Pain control with Tylenol and Toradol as needed * Zofran when necessary for nausea * Possibly going for stent placement with Dr. Camp. #GERD and indigestion Patient has been complaining of these symptoms for long time, she self manage with Tums at home. Her symptom significantly improved after starting PPI yesterday * Continue PPI * We will instruct patient to follow with primary care doctor as an outpatient -We will continue the rest of home medication includes ASA and statin -NPO for now. -DVT prophylaxis subcutaneous heparin. -Full code. Problem List: 1. Renal stone 2. Hydronephrosis Pain Ratin Pain Location: RLQ and right flank Pain Goal: Remain pain free Pain Plan: See A&P Tomorrow's Labs & Rationales: CBC to rule out infection given urinary obstruction
--- NOTE | 2017-10-15 12:08 | Discharge Summary ---
Visit Information Visit Dates Admission Date: 10/13/17 Discharge Date: 10/17/17 Hospital Course Course Attending Physician: Sejal Bull MD Primary Care Physician: Christina Stubbs APRN Hospital Course: 67-year-old female with history of kidney stone who presented with hematuria, right lower quadrant abdominal pain and right flank pain. CT abdomen and pelvis showed moderate right hydronephrosis secondary to 3 mm right proximal ureteral stone with some fluid and fat stranding surrounding the right kidney. We started with conservative management given the small size of the stone. She was started on Flomax daily and followed in the general medicine floor. The pain was managed with tramadol and tylenol. The patient symptoms did not improve, KUB was done and showed obstructive stone. atient underwent scystoscopy, R ureteroscopy, laser litho of R proximal ureteral stone and basket extraction of some of the fragments and insertion of R double J ureteral stent. Urine culture showed no growth after 2 days. We continued Flomax andpatient will follow-up with urology on Saturday at 9:00 AM for removal of R ureteral stent. During admission the patient complained of symptoms of GERD and indigestion. She has these symptoms of the past few months. She improved significantly on PPI. She was discharged on 20 mg omeprazole and was instructed to follow with PCP to further address this complain. Allergies: Coded Allergies: nitrofurantoin (From [employer]) (FLUSHED 10/13/17) Disposition Summary Disposition Principal Diagnosis: obstructing right ureteric calculus Additional Diagnosis: GERD Discharge Disposition: home or self care Discharge Instructions General Discharge Information Code Status: Full Code Patient's Diet: regular diet Patient's Activity: as tolerated Follow-Up Instructions/Appts: please follow up with PCP and urology within 1-2 weeks. Please call us back or come to ED if fever, chilld, worsening of pain. Medications at Discharge Discharge Medications: Continue taking these medications: Atorvastatin Calcium (Atorvastatin Calcium) 10 MG TABLET 1 Tablet ORAL Every other day Comments: Last Taken: 10/17/17 Time: 840AM Ubidecarenone (Co Q-10) 150 MG CAPSULE 1 Capsule ORAL DAILY Comments: NOT GIVEN Aspirin (Ecotrin*) 81 MG TABLET. 1 Tablet ORAL Every other day Comments: Last Taken: 10/17/17 Time: 840AM Beta-Carotene(A) W-C & E/Se (Antioxidant Softgels) 1 EACH CAPSULE 1 Capsule ORAL DAILY Comments: NOT GIVEN [place]-3 Fatty Acids/Fish Oil (Fish Oil 1,000 MG Softgel) 340 MG-1,000 MG CAPSULE 1 Tablet ORAL DAILY Comments: NOT GIVEN Lactobacillus Acidophilus (Probiotic) 10 BILLION CELL CAPSULE 1 Capsule ORAL DAILY Comments: NOT GIVEN Methylcellulose (Fiber) 500 MG TABLET 1 Tablet ORAL DAILY Comments: NOT GIVEN Calcium (Elemental-Fr Calcarb) (Tums Ultra) 400 MG CALCIUM (1,000 MG) TAB.CHEW 1 Tablet ORAL DAILY as needed for GI Comments: NOT GIVEN Start taking the following new medications: Omeprazole (Omeprazole) 20 MG CAPSULE.DR 20 Milligram ORAL DAILY BEFORE BREAKFAST Qty = 60 No Refills Comments: Last Taken: 10/17/17 Time: 600AM Tamsulosin HCl (Flomax) 0.4 MG CAP.ER.24H 0.4 Milligram ORAL DAILY Qty = 4 No Refills Comments: Last Taken: 10/17/17 Time: 840AM Cephalexin (Cephalexin) 250 MG CAPSULE 1 Capsule ORAL TWICE DAILY Qty = 10 No Refills Comments: NOT GIVEN Copies To: Conrado SPARROW,Chip Mark; Christina Stubbs APRN
[2017-10-15 14:31] VITALS: BP 122/50
--- NOTE | 2017-10-15 14:53 | RADIOLOGY REPORT ---
EXAMINATION: XR KIDNEYS, URETER, BLADDER CLINICAL INDICATION: Obstructive kidney stone. Right flank pain. COMPARISON: CT of the abdomen and pelvis done on 10/13/2017. TECHNIQUE: AP view of the abdomen. FINDINGS: There is a 0.3 cm maximum dimension radiodensity seen projecting at the level of the transverse process of the L4 vertebral body to the right of the midline; when correlating with the prior CT study, would be consistent with previously documented right ureteric obstructing calculus. Multiple postsurgical clips are noted within the pelvis on either side of the midline. Multilevel degenerative spondylosis is seen. IMPRESSION: A 0.3 cm radiodensity is seen at the level of the transverse process of L4 vertebral body to the right of the midline, consistent with previously documented obstructing right ureteric calculus.
[2017-10-15 22:23] VITALS: BP 122/50
[2017-10-16 06:34] VITALS: BP 122/68
--- NOTE | 2017-10-16 07:22 | PN- Urology ---
Subjective Subjective: Feels well now but had R flank pain with nausea and vomiting previously which prevented discharge home. Objective Vital Signs and I&Os Vital Signs Date Time Temp Pulse Resp B/P B/P Pulse O2 O2 Flow FiO2 Mean Ox Delivery Rate 10/16 0634 98.4 79 20 122/68 97 Room Air 10/15 2223 98.9 86 20 122/50 96 Room Air 10/15 1431 98.2 76 0 122/50 97 Room Air 10/15 0854 60 120/52 Intake & Output 10/16 0810/16 0000 10/15 1600 10/15 0800 10/15 0000 10/14 1600 Intake Total 650 1400 720 600 300 720 Output Total 501 200 400 Balance 650 899 520 600 300 320 Intake, IV 600 600 600 600 300 600 Intake, Oral 50 800 120 120 Number 0 0 0 Bowel Movements Output, Stool 1 Output, Urine 500 200 400 Abd: soft and non tender Laboratory Tests 10/16 10/15 0655 0725 Chemistry Sodium (137 - 145 mmol/L) 143 Potassium (3.5 - 5.1 mmol/L) 3.5 Chloride (98 - 107 mmol/L) 111 H Carbon Dioxide (22 - 30 mmol/L) 22 Anion Gap (5 - 16) 10 BUN (7 - 17 mg/dL) 11 Creatinine (0.5 - 1.0 mg/dL) 1.0 Estimated GFR (>60 ml/min) 55 L BUN/Creatinine Ratio (7 - 25 %) 11.0 Coagulation PT Pending INR Pending Hematology CBC w Diff Pending WBC Pending RBC Pending Hgb Pending Hct Pending MCV Pending MCH Pending MCHC Pending RDW Pending Plt Count Pending MPV Pending KUB: 3 mm stone in R proximal ureter at level of L4. No change in position since original CT scan Assessment/Plan Assessment/Plan Imp: 1. R ureteral stone with intermittent R renal colic and no migration of stone distally Plan: 1. For R ureteroscopy and attempted stone removal today. Patient is scheduled at 2:00 PM.\ 2. Please keep npo except po meds with sip of water
[2017-10-16 08:08] LABS: ABSOLUTE BASOPHIL COUNT 0.1 /CUMM (0.0-0.2); ABSOLUTE EOSINOPHIL COUNT 0.1 /CUMM (0.0-0.7); ABSOLUTE GRANULOCYTE CT 6.7 /CUMM (1.4-6.5); ABSOLUTE LYMPH COUNT 1.8 /CUMM (1.2-3.4); ABSOLUTE MONOCYTE COUNT 0.6 /CUMM (0.10-0.60); BASOPHIL % 0.6 % (0.0-2.0); EOSINOPHIL % 1.3 % (0-5); MEAN CORPUSCULAR HGB 30.9 PG (27.0-31.0); MEAN CORPUSCULAR HGB CONC 33.3 G/DL (33.0-37.0); MEAN CORPUSCULAR VOLUME 92.7 FL (81.0-99.0); MEAN PLATELET VOLUME 9.3 FL (7.4-10.4); PLATELET COUNT 177 /CUMM (130-400); RED BLOOD CELL CT 3.56 /CUMM (4.20-5.40); WHITE BLOOD CELL COUNT 9.3 /CUMM (4.8-10.8)
[2017-10-16 08:18] LABS: PT 11.7 SEC (9.4-12.5)
--- NOTE | 2017-10-16 09:03 | PN- Housestaff ---
Chapo Odonnell MD,Waqas 10/16/17 0902: Subjective Follow-up For: Moderate right hydronephrosis Proximal right sided 3 mm ureteral stone Complaints: RIGHT FLANK PAIN AT BASELINE Subjective: Patient was lying in the bed with mild discomfort in her right flank. Remained afebrile overnight. Denied any nausea or vomiting. Patient is planned for right-sided ureteroscopy and attempted stone removal today. Review of Systems Constitutional: Denies: chills, fever. Respiratory: Denies: short of breath. Gastrointestinal: Denies: abdominal pain, nausea, vomiting. Musculoskeletal: Denies: joint pain. Objective Last 24 Hrs of Vital Signs/I&O Vital Signs Date Time Temp Pulse Resp B/P B/P Pulse O2 O2 Flow FiO2 Mean Ox Delivery Rate 10/16 0846 80 140/70 10/16 0634 98.4 79 20 122/68 97 Room Air 10/15 2223 98.9 86 20 122/50 96 Room Air 10/15 1431 98.2 76 0 122/50 97 Room Air Intake & Output 10/16 1600 10/16 0800 10/16 0000 Intake Total 650 1400 Output Total 501 Balance 650 899 Intake, IV 600 600 Intake, Oral 50 800 Number 0 Bowel Movements Output, Stool 1 Output, Urine 500 Physical Exam General Appearance: Alert, Oriented X3, Cooperative, Mild Distress Skin: No Rashes HEENT: Atraumatic Neck: Supple, No JVD Cardiovascular: Regular Rate, Normal S1, Normal S2 Lungs: Clear to Auscultation, Normal Air Movement Abdomen: Normal Bowel Sounds, Soft, RIGHT FLANK PAIN Neurological: Normal Gait, Normal Speech, Normal Tone, Sensation Intact Extremities: No Edema Current Medications: Current Medications Sig/Zina Start time Last Medication Dose Route Stop Time Status Admin Acetaminophen 650 MG .STK-MED ONE 10/15 1950 DC PO 10/16 1951 Acetaminophen 650 MG Q4P PRN 10/14 1700 AC 10/15 PO 1953 Aspirin Buffered 81 MG Q48 10/13 1430 AC 10/15 PO 0843 Atorvastatin Calcium 10 MG Q48 10/13 1430 AC 10/15 PO 0842 Enoxaparin Sodium 40 MG DAILY 10/13 1417 AC 10/15 SC 0843 Ketorolac 15 MG Q6P PRN 10/13 1430 AC 10/16 Tromethamine IV 0834 Morphine Sulfate 4 MG Q6-PRN PRN 10/13 1515 AC IV Omeprazole 20 MG DAILY AC 10/15 0700 AC 10/16 PO 0539 Patient Medication 1 ED ONE ONE 10/15 1430 DC Teaching ED 10/15 1431 Sodium Chloride 1,000 ML Q13H 10/14 1700 AC 10/15 IV 1925 Sodium Chloride 1,000 ML Q6H 10/13 1545 DC 10/14 IV 0459 Tamsulosin HCl 0.4 MG DAILY 10/14 1000 AC 10/16 PO 0846 Last 24 Hrs of Lab/Toño Results Last 24 Hrs of Labs/Mics: Laboratory Tests 10/16/17 0655: PT 11.7, INR 1.07, CBC w Diff NO MAN DIFF REQ, RBC 3.56 L, MCV 92.7, MCH 30.9, MCHC 33.3, RDW 14.0, MPV 9.3, Gran % 72.0, Lymphocytes % 19.1 L, Monocytes % 7.0, Eosinophils % 1.3, Basophils % 0.6, Absolute Granulocytes 6.7 H, Absolute Lymphocytes 1.8, Absolute Monocytes 0.6, Absolute Eosinophils 0.1, Absolute Basophils 0.1 Lines/Diet/Fluids Fluids/Infusions: NORMAL SALINE AT THE RATE OF 75 Ml PER HOUR Lines: peripheral lines Restraints: none Assessment/Plan Assessment: 67-year-old female with history of kidney stone who presented with right lower quadrant abdominal pain and right flank pain. CT abdomen and pelvis showed moderate right hydronephrosis secondary to 3 mm right proximal ureteral stone with some fluid and fat stranding surrounding the right kidney. On admission she had elevated blood pressure that most likely secondary to pain, blood pressure is been controlled since then without antihypertensive medication. The plan was to discharge patient yesterday and give her a chance to pass the stone without stent placement, however just before she was discharged she developed severe abdominal and flank pain, nausea, and vomiting. Patient was initially observation and because of her ongoing medical problems she was made full admission Patient is currently being managed for the following problems Moderate right-sided hydronephrosis/right-sided 3 mm proximal ureteral stone Patient was admitted with right-sided flank lower quadrant pain and hematuria, CT showed moderate right-sided hydronephrosis without any renal function compromise on the labs. The plan was conservative management given the small size of the stone, however she continued to complain of abdominal pain and flank pain. The patient also has nausea and had one episode of nonbloody vomiting therefore decision was make to involve urology. Currently her pain is controlled with tramadol and nausea is controlled with Zofran. Patient is planned for right -sided ureteroscopy and attempted stone removal today. We will continue IV hydration @75ml/h while NPO. Patient remained afebrile overnight and urine culture showed no growth after 2 days. We will continue Flomax and follow-up post urological procedure Acute anemia Current hemoglobin 11 and hematocrit 33. Baseline hemoglobin and hematocrit 14/ 42. Likely cause of anemia is dilutional but will order stool guaiac. She denied any bright red blood per rectum. GERD Patient has been complaining of these symptoms for long time, she self manage with Tums at home. Her symptom significantly improved after starting PPI. We will certified personal finance counselor the patient to follow with primary care doctor for outpatient workup if symptoms persist. DVT prophylaxis Patient is currently on Lovenox for DVT prophylaxis Diet Patient is currently nothing by mouth CODE STATUS -Full code. Problem List: 1. Hydronephrosis 2. Renal stone Pain Ratin Pain Location: Right flank pain Pain Goal: Pain 4 or less Pain Plan: Continue current pain meds Tomorrow's Labs & Rationales: BEP to monitor renal function CBC for anemia DVT/Prophylaxis: pharmacological Sejal Bull MD 10/16/17 1045: Attending MD Review Statement Attending Statement Attending MD Statement: examined this patient, discuss w/resident/PA/SWATCH CHECKER, agreed w/resident/PA/SWATCH CHECKER, discussed with family, reviewed EMR data (avail), discussed with nursing, discussed with case mgmt, reviewed images, amended to note Attending Assessment/Plan: Patient seen and examined, had some pain this am but Toradol helped. No n/v. Vital Signs Date Time Temp Pulse Resp B/P B/P Pulse O2 O2 Flow FiO2 Mean Ox Delivery Rate 10/16 0846 80 140/70 10/16 0634 98.4 79 20 122/68 97 Room Air 10/15 2223 98.9 86 20 122/50 96 Room Air 10/15 1431 98.2 76 0 122/50 97 Room Air on exam: aox3, nad. cv; s1,s2, rrr resp; clear abd; soft, nt, bs+ ext; no edema. Laboratory Tests 10/16 0655 Coagulation PT (9.4 - 12.5 SEC) 11.7 INR (0.90 - 1.19) 1.07 Hematology CBC w Diff NO MAN DIFF REQ WBC (4.8 - 10.8 /CUMM) 9.3 RBC (4.20 - 5.40 /CUMM) 3.56 L Hgb (12.0 - 16.0 G/DL) 11.0 L Hct (37 - 47 %) 33.0 L MCV (81.0 - 99.0 FL) 92.7 MCH (27.0 - 31.0 PG) 30.9 MCHC (33.0 - 37.0 G/DL) 33.3 RDW (11.5 - 14.5 %) 14.0 Plt Count (130 - 400 /CUMM) 177 MPV (7.4 - 10.4 FL) 9.3 Gran % (42.2 - 75.2 %) 72.0 Lymphocytes % (20.5 - 51.1 %) 19.1 L Monocytes % (1.7 - 9.3 %) 7.0 Eosinophils % (0 - 5 %) 1.3 Basophils % (0.0 - 2.0 %) 0.6 Absolute Granulocytes (1.4 - 6.5 /CUMM) 6.7 H Absolute Lymphocytes (1.2 - 3.4 /CUMM) 1.8 Absolute Monocytes (0.10 - 0.60 /CUMM) 0.6 Absolute Eosinophils (0.0 - 0.7 /CUMM) 0.1 Absolute Basophils (0.0 - 0.2 /CUMM) 0.1 A/P: 67-year-old female with past medical history significant for uterine cancer status post hysterectomy, history of nephrolithiasis who was admitted with right -sided abdominal pain secondary to small ureteric stone. Initially conservative management was pursued with the hope that stone would pass itself. Unfortunately patient became symptomatic again and now she is scheduled for cystoscopy and stent placement with Dr. Camp. Patient reported to or this afternoon. Continue current medications. After the stent, patient be observed for another 24 hours. DVT prophylaxis: Lovenox. Possible discharge home tomorrow if remains stable.
--- NOTE | 2017-10-16 16:07 | PN- Urology ---
Surgical Brief Attending Note Brief Attending Note: Patient underwent cystoscopy, R ureteroscopy, laser litho of R proximal ureteral stone and basket extraction of some of the fragments and insertion of R double J ureteral stent. Plan: 1. If afebrile and feels well can be discharged in AM 2. Office f/u next week for R ureteral stent removal
--- NOTE | 2017-10-16 16:59 | Operative Report ---
Operative/Inv Procedure Report Surgery Date: 10/16/17 Name of Procedure: Cystoscopy, right flexible ureteroscopy, laser lithotripsy of right proximal ureteral calculus, basket extraction of stone fragments, insertion of right double-J ureteral stent Pre-Operative Diagnosis: Right proximal ureteral calculus Post-Operative Diagnosis: Same Estimated Blood Loss: scant Surgeon/Exercise Physiologist Certified: Chip Camp MD Anesthesia: laryngeal mask airway Drains: 24 cm 6 [place] right double-J ureteral stent with long suture attached the distal end Specimens: Urine culture and right ureteral stone fragments Complications: None Condition: Stable Operative Indication: This patient was admitted to the hospital with right flank pain. CT scan showed a 3-4 mm right proximal ureteral calculus. She continued to have pain requiring a cardiac analgesics and also had nausea and vomiting. Therefore she was scheduled for right ureteroscopy and laser lithotripsy of her calculus Operative/Procedure Note Note: The patient was taken to the operating room and identified. She was placed in supine position on the operating table. A timeout was executed appropriately with the patient awake. Gen. anesthesia was induced via LMA. Patient was then placed in the dorsolithotomy position and prepped and draped in the usual fashion for cystoscopy. Surgical pause was executed appropriately. A fluoroscopy images taken with a marker on the right side of the abdomen to confirm the correct side of the surgery as well as a correct orientation of the fluoroscopy image. 22 [place] cystoscope sheath was placed into the bladder and cystoscopy performed. The bladder was normal. Ureteral orifices were normal in location and appearance. Urine was collected for culture. A guidewire was placed through the cystoscope and into the right ureter and advanced up the level of the right kidney. At this point the cystoscope was removed leaving the wire in place. An attempt to place a double-lumen dilating catheter was unsuccessful as the right distal ureter was too narrow to accept the dilator. At this point the rigid ureteroscope was advanced through the urethra into the bladder and into the right ureter. The right distal ureter was tight however the ureteroscope could be advanced beyond this point. However could not be advanced up the level of L4 where the stone was located. Therefore the ureteroscope was removed. A second guidewire was placed. Over the second guidewire was placed a ureteral access sheath. This was somewhat difficult but eventually was placed beyond the narrowed area of the ureter. Flexible ureteroscope was advanced through the ureteral access sheath up to the level of the proximal ureter. The stone was seen at this level. The 275 holmium laser fiber was placed with the fax flexible ureteroscope. The stone was fragmented into multiple fragments. A couple of the fragments migrated proximally into the kidney. Using a 0 tip basket most of the fragments were removed and sent for analysis. No significant stone fragments could be seen in the kidney or proximal ureter at this time. The ureteral access sheath was removed. Cystoscope was back loaded onto the guidewire. Open-ended catheter was placed over the wire and advanced up the level of the kidney. The wire was removed and some contrast injected to outline the right renal collecting system. The guidewire was placed back through the open-ended catheter. The open-ended catheter was removed. Under visual fluoroscopic control a 24 7 m 6 [place] right double-J ureteral stent was placed. The proximal end was seen to be coiled in the kidney on fluoroscopy and the distal and was seen to be coiled in the bladder. A long suture was left attached the distal end of the stent exiting the urethra. Patient tolerated the procedure well and as completion was taken to recovery room in stable condition. Findings: 3-4 mm right proximal ureteral calculus, narrowed areas of the ureter just above the ureterovesical junction and in the proximal ureter Discharge Disposition: PACU
[2017-10-16 17:30] VITALS: BP 142/80
[2017-10-16 22:49] VITALS: BP 140/60
--- NOTE | 2017-10-16 23:34 | RADIOLOGY REPORT ---
EXAMINATION: XR ABDOMEN CLINICAL INDICATION: Right retrograde study with stent placement COMPARISON: 10/13/2017 TECHNIQUE: 0.7 minutes of fluoroscopy time provided. Several hard copies from an intraoperative portable C-arm exam. FINDINGS: Serial radiographs demonstrate mild hydronephrosis of the right renal collecting system secondary to the known stone. Stent placed satisfactorily. Limited detail. IMPRESSION: As above.
[2017-10-17 06:20] VITALS: BP 122/66
--- NOTE | 2017-10-17 07:25 | PN- Urology ---
Subjective Subjective: Feels well. No flank or abd pain. Still with hematuria Objective Vital Signs and I&Os Vital Signs Date Time Temp Pulse Resp B/P B/P Pulse O2 O2 Flow FiO2 Mean Ox Delivery Rate 10/17 06 97.7 63 18 122/66 96 Room Air 10/16 2249 97.9 78 20 140/60 95 Room Air 10/16 2120 Room Air 10/16 1730 97.4 63 20 142/80 93 Room Air 10/16 0846 80 140/70 Intake & Output 10/17 0810/17 0000 10/16 1600 10/16 0800 10/16 0000 10/15 1600 Intake Total 500 562 428 5858 720 Output Total 1450 501 200 Balance -950 450 650 899 520 Intake, IV 400 400 600 600 600 Intake, Oral 100 50 50 800 120 Number 0 0 0 Bowel Movements Output, Stool 1 Output, Urine 1450 500 200 Patient 150 lb Weight Weight Reported by Patient Measurement Method Abd: soft Assessment/Plan Assessment/Plan Imp: 1. s/p R ureteroscopy and laser litho of R proximal ureteral stone and basket extraction of stone fragments and insertion of R ureteral stent Plan: 1. OK to discharge home to day from my point of view 2. Would discharge on cephalexin 250 mg tid for 5 days 3. To come to office Saturday at 9:00 AM for removal of R ureteral stent
--- NOTE | 2017-10-17 07:30 | PN- Housestaff ---
Ul Belle SPARROW,Waqas 10/17/17 0729: Subjective Follow-up For: Moderate right hydronephrosis Proximal right sided 3 mm ureteral stone Status post Cystoscopy, right flexible ureteroscopy, laser lithotripsy of right proximal ureteral calculus, basket extraction of stone fragments, insertion of right double-J ureteral stent Complaints: no complaints Subjective: Patient was comfortably lying in the bed. She remained afebrile overnight. Denied any nausea or vomiting. She underwent Cystoscopy, right flexible ureteroscopy, laser lithotripsy of right proximal ureteral calculus, basket extraction of stone fragments, insertion of right double-J ureteral stent yesterday. Review of Systems Constitutional: Denies: chills, fever. Cardiovascular: Denies: chest pain, palpitations. Respiratory: Denies: cough, short of breath. Gastrointestinal: Denies: abdominal pain, nausea, vomiting. Genitourinary: Denies: discharge. Objective Last 24 Hrs of Vital Signs/I&O Vital Signs Date Time Temp Pulse Resp B/P B/P Pulse O2 O2 Flow FiO2 Mean Ox Delivery Rate 10/17 0620 97.7 63 18 122/66 96 Room Air 10/16 2249 97.9 78 20 140/60 95 Room Air 10/16 2120 Room Air 10/16 1730 97.4 63 20 142/80 93 Room Air Intake & Output 10/17 1600 10/17 0800 10/17 0000 Intake Total 700 500 Output Total 500 1450 Balance 200 -950 Intake, IV 600 400 Intake, Oral 100 100 Output, Urine 500 1450 Physical Exam General Appearance: Alert, Oriented X3, Cooperative, No Acute Distress HEENT: PERRLA Neck: No JVD Cardiovascular: Regular Rate, Normal S1, Normal S2, No Murmurs Lungs: Clear to Auscultation, Normal Air Movement Abdomen: Normal Bowel Sounds, Soft, No Tenderness, Mild tenderness of right Flank on deep palpation Neurological: Normal Speech, Normal Tone, Sensation Intact Extremities: No Clubbing, No Cyanosis, No Edema Vascular: Normal Pulses Assessment/Plan Assessment: 67-year-old female with history of kidney stone who presented with right lower quadrant abdominal pain and right flank pain. CT abdomen and pelvis showed moderate right hydronephrosis secondary to 3 mm right proximal ureteral stone with some fluid and fat stranding surrounding the right kidney. On admission she had elevated blood pressure that most likely secondary to pain, blood pressure is been controlled since then without antihypertensive medication. The plan was to discharge patient yesterday and give her a chance to pass the stone without stent placement, however just before she was discharged she developed severe abdominal and flank pain, nausea, and vomiting. Patient was initially observation and because of her ongoing medical problems she was made full admission Patient is currently being managed for the following problems Moderate right-sided hydronephrosis/right-sided 3 mm proximal ureteral stone Patient was admitted with right-sided flank lower quadrant pain and hematuria, CT showed moderate right-sided hydronephrosis without any renal function compromise on the labs. The plan was conservative management given the small size of the stone, however she continued to complain of abdominal pain and flank pain. The patient also has nausea and had one episode of nonbloody vomiting therefore decision was make to involve urology. Currently her pain is controlled with tramadol and nausea is controlled with Zofran. Patient underwent scystoscopy, R ureteroscopy, laser litho of R proximal ureteral stone and basket extraction of some of the fragments and insertion of R double J ureteral stent yesterday. urine culture showed no growth after 2 days. We will continue Flomax and follow-up post with urology with a follow-up on Saturday at 9:00 AM for removal of R ureteral stent. Acute anemia Yesterday's hemoglobin 11 and hematocrit 33. Baseline hemoglobin and hematocrit 14/42. Likely cause of anemia is dilutional but will order stool guaiac. She denied any bright red blood per rectum. GERD Patient has been complaining of these symptoms for long time, she self manage with Tums at home. Her symptom significantly improved after starting PPI. We will vocational rehabilitation counselor the patient to follow with primary care doctor for outpatient workup if symptoms persist. DVT prophylaxis Patient is currently on Lovenox for DVT prophylaxis Diet Patient is currently on Regular diet CODE STATUS -Full code. Problem List: 1. Renal stone 2. Hydronephrosis Pain Ratin Pain Location: RIGHT FLANK Pain Goal: Pain 4 or less Pain Plan: Continue current pain meds Tomorrow's Labs & Rationales: Not needed DVT/Prophylaxis: pharmacological Jorgito SPARROW,Sejal 10/17/17 1117: Attending Review Statement Attending Statement Attending Statement: examined this patient, discuss w/resident/PA/HAND INSERTER OPERATOR, agreed w/resident/PA/HAND INSERTER OPERATOR, discussed with family, reviewed EMR data (avail), discussed with nursing, discussed with case mgmt, reviewed images, amended to note Attending Assessment/Plan: patient seen and examined, overall doing much better. Pain is well controlled. Patient underwent cystoscopy with laser lithotripsy as well as stone extraction with Dr. Camp yesterday. Doing well and seen by urologist today. Medically stable for discharge home today. Will be discharged on a few more days of antibiotics and Flomax will be continued. Patient will see Dr. Camp in 4 days. Also advised to follow with her primary care doctor in the next 1-2 weeks. The rest of her home medications will be continued.
[2017-10-17 08:48] LABS: ABSOLUTE BASOPHIL COUNT 0 /CUMM (0.0-0.2); ABSOLUTE EOSINOPHIL COUNT 0 /CUMM (0.0-0.7); ABSOLUTE GRANULOCYTE CT 8.3 /CUMM (1.4-6.5); ABSOLUTE MONOCYTE COUNT 0.5 /CUMM (0.10-0.60); BASOPHIL % 0.3 % (0.0-2.0); EOSINOPHIL % 0 % (0-5); HEMATOCRIT 31.9 % (37-47); MEAN CORPUSCULAR HGB 31.3 PG (27.0-31.0); MEAN CORPUSCULAR HGB CONC 34.2 G/DL (33.0-37.0); MEAN CORPUSCULAR VOLUME 91.6 FL (81.0-99.0); MEAN PLATELET VOLUME 9.9 FL (7.4-10.4); PLATELET COUNT 180 /CUMM (130-400); RBC DISTRIBUTION WIDTH 13.7 % (11.5-14.5); RED BLOOD CELL CT 3.48 /CUMM (4.20-5.40); WHITE BLOOD CELL COUNT 9.7 /CUMM (4.8-10.8)
[2017-10-17] MEDS ORDERED: CEPHALEXIN250 M2 PO ×2 (09:13→10:17)
[2017-10-17 10:06] LABS: GRANULOCYTE % 84.8 % (42.2-75.2)
[2017-10-17] MEDS ORDERED: FLOMAX0.4 M1 PO (10:15)
== END 2017-10-17 10:45 | DRG 669 ==
LOC: DELPENDDIS → ERH 09:48 → 2NA 13:45 → ERHI 13:45 → ENRESERV 14:53 → ENTRNSPT 16:25 → EDTRNSPTSTS 16:29 → 2NA 16:37 → CMPTRNSPT 16:54 → 2NA 10-14 07:46 → ENPENDDIS 10-14 14:31 → ENTRNSPT 10-14 16:08 → CMPTRNSPT 10-14 16:46 → 2NA 10-16 09:01 → ENTRNSPT 10-16 16:49 → CMPTRNSPT 10-16 17:45 → 2NA 10-17 10:45
PROVIDERS: Dermatology; Physician Assistant Medical; Student in an Organized Health Care Education/Training Program
PROC: 0T767DZ Dilation of Right Ureter with Intraluminal Device, Via Natural or Artificial Opening (ICD-10-PCS; principal; 2017-10-16)
PROC: 0TC67ZZ Extirpation of Matter from Right Ureter, Via Natural or Artificial Opening (ICD-10-PCS; principal; 2017-10-16)
DX: N13.2 Hydronephrosis with renal and ureteral calculous obstruction (principal); K57.92 Diverticulitis of intestine, part unspecified, without perforation or abscess without bleeding; K21.9 Gastro-esophageal reflux disease without esophagitis; R31.9 Hematuria, unspecified; Z85.43 Personal history of malignant neoplasm of ovary; Z90.710 Acquired absence of both cervix and uterus; Z87.442 Personal history of urinary calculi; Z79.82 Long term (current) use of aspirin; E78.5 Hyperlipidemia, unspecified; R42 Dizziness and giddiness; Z87.891 Personal history of nicotine dependence
CPT/HCPCS: 2NASP; 36415; 36592; 74018; 74177; 81001; 82436; 87040; 87086; 96361; 96374; 96375; C2617; J0131; J0690; J1100; J1650; J1885; J2405; J7042